=== PATIENT | female | born 1935 | race Caucasian/White ===

== ENCOUNTER 2024-11-17 01:11 | Inpatient (IN) | payer MEDICARE ==
[2024-11-17 02:55] VITALS: BMI 30.6
[2024-11-17] MEDS ORDERED: Ipratropium/Albuterol 3 ML NEB NEB PRN ×2 (03:49→09:34)
[2024-11-17] MEDS ORDERED: hydrALAZINE 20 MG/ML VIAL SLOW IVP PRN (04:09)
[2024-11-17] MEDS: Azithromycin 250 MG TAB PO SCH (04:57)
[2024-11-17 05:13] LABS: #Basophils Less than 0.03 10x3/uL (0.0-0.2); #Eosinophils Less than 0.03 10x3/uL (0.0-0.7); %Basophils 0.2 % (0.0-1.0); %Eosinophils 0.1 % (0.0-10.0); %Lymphocytes 4.7 % (21.0-51.0); %Monocytes 0.9 % (0.0-10.0); %Neutrophils 93.7 % (42.0-75.0); Hemoglobin 9.8 g/dL (12.0-16.0); Mean Corpuscular HGB CONC 32.7 g/dL (32.0-36.0); Mean Corpuscular Hemoglobin 29.3 pg (27.0-31.0); Mean Corpuscular Volume 89.6 fL (78.0-98.0); Mean Platelet Volume 9.3 fL (7.4-10.4); Platelet Count 400 10x3/uL (130-400); RBC Distribution Width 14.6 % (11.5-14.5); Red Blood Cell (RBC) Count 3.35 mill/uL (4.20-5.40)
[2024-11-17 05:42] LABS: ALT (SGPT) 11 U/L (8-55); AST (SGOT) 17 U/L (5-34); Albumin 3.3 g/dL (3.4-4.8); Alkaline Phosphatase 69 U/L (40-110); Anion Gap 15 mmol/L (10-20); BUN (Urea Nitrogen) 42 mg/dL (9.8-20.1); Bilirubin, Total 0.2 mg/dL (0.2-1.2); Calc. Creatinine Clearance 36 mL/min (70-130); Calcium 8.6 mg/dL (7.8-10.44); Carbon Dioxide 20 mmol/L (23-31); Chloride 108 mmol/L (98-107); Estimated GFR 41; Globulin 3.1 g/dL (2.4-3.5); Glucose 184 mg/dL (83-110); Potassium 4.2 mmol/L (3.5-5.1); Protein, Total 6.4 g/dL (5.8-8.1); Sodium 139 mmol/L (136-145)
[2024-11-17] MEDS ORDERED: Dextrose 5% in Water 1,000 ML IV PRN (06:07)
[2024-11-17] MEDS ORDERED: Dextrose 50% Abboject 50 ML SYRINGE SLOW IVP PRN (06:07)
[2024-11-17] MEDS ORDERED: Glucagon 1 MG/ML KIT IM PRN (06:07)
[2024-11-17 06:17] LABS: Influenza A by NAA Not Detected (NotDetected); Influenza B by NAA Not Detected (NotDetected); SARS-CoV-2 NAA Rapid Test Not Detected (NotDetected)
[2024-11-17] MEDS: Ipratropium/Albuterol 3 ML NEB NEB SCH ×2 (06:52→07:09)
[2024-11-17] MEDS: Enoxaparin 30 MG (0.3 mL) SYRINGE SC SCH (10:14)
[2024-11-17] MEDS: CeleCOXIB 100 MG CAP PO SCH ×2 (10:15→20:49)
[2024-11-17] MEDS: Amlodipine 10 MG TAB PO SCH (10:15)
[2024-11-17] MEDS: Methocarbamol 500 MG TAB PO SCH ×2 (10:15→20:50)
[2024-11-17] MEDS: Gabapentin 300 MG CAP PO SCH ×2 (10:15→20:49)
[2024-11-17] MEDS: ALPRAZolam 0.5 MG TAB PO SCH (20:50)
[2024-11-17] MEDS: methylPREDNISolone Sod Succ 40 MG VIAL IVP SCH (20:50)
[2024-11-17] MEDS ORDERED: ALPRAZolam 0.5 MG TAB PO SCH (21:00)
[2024-11-17] MEDS ORDERED: Amlodipine 10 MG TAB PO SCH (21:00)
[2024-11-17] MEDS ORDERED: cefTRIAXone\\ROCEPHIN 1 GM in Sodium Chloride 0.9% 100 ML IVPB SCH (21:00)
[2024-11-17] MEDS ORDERED: cefTRIAXone\\ROCEPHIN 2 GM in Sodium Chloride 0.9% 100 ML IVPB SCH (21:00)
[2024-11-17] MEDS ORDERED: clonazePAM 0.5 MG TAB PO SCH (21:00)
[2024-11-18 05:10] LABS: #Basophils Less than 0.03 10x3/uL (0.0-0.2); #Eosinophils Less than 0.03 10x3/uL (0.0-0.7); %Basophils 0.1 % (0.0-1.0); %Lymphocytes 5.2 % (21.0-51.0); %Monocytes 1.7 % (0.0-10.0); %Neutrophils 92.5 % (42.0-75.0); Hemoglobin 9.2 g/dL (12.0-16.0); Mean Corpuscular HGB CONC 32.9 g/dL (32.0-36.0); Mean Corpuscular Hemoglobin 29.2 pg (27.0-31.0); Mean Corpuscular Volume 88.9 fL (78.0-98.0); Platelet Count 390 10x3/uL (130-400); RBC Distribution Width 14.7 % (11.5-14.5); Red Blood Cell (RBC) Count 3.15 mill/uL (4.20-5.40)
[2024-11-18] MEDS: Levothyroxine Sodium 75 MCG TAB PO SCH (05:16)
[2024-11-18 05:26] LABS: Anion Gap 13 mmol/L (10-20); BUN (Urea Nitrogen) 56 mg/dL (9.8-20.1); Calc. Creatinine Clearance 39 mL/min (70-130); Calcium 8.4 mg/dL (7.8-10.44); Carbon Dioxide 20 mmol/L (23-31); Chloride 105 mmol/L (98-107); Estimated GFR 45; Glucose 174 mg/dL (83-110); Potassium 4.4 mmol/L (3.5-5.1); Sodium 134 mmol/L (136-145)
[2024-11-18] MEDS ORDERED: Valsartan 80 MG TAB PO SCH (09:00)
[2024-11-18] MEDS ORDERED: Hydrochlorothiazide 25 MG TAB PO SCH (09:00)
[2024-11-18] MEDS ORDERED: Non-Formulary Item 1 EACH (Valsartan/Hydrochlorothiazide [Valsartan-Hctz 160-25 Mg Tab] 1 PO SCH (09:00)
[2024-11-18] MEDS: Valsartan 80 MG TAB PO SCH (09:56)
[2024-11-18] MEDS: Magnesium Oxide 400 MG TAB PO SCH (09:56)
[2024-11-18] MEDS: Loratadine 10 MG TAB PO SCH (09:56)
[2024-11-18] MEDS: Azithromycin 250 MG TAB PO SCH (09:57)
[2024-11-18] MEDS: Hydrochlorothiazide 25 MG TAB PO SCH (10:02)
[2024-11-18] MEDS: Gabapentin 300 MG CAP PO SCH (10:02)
[2024-11-18] MEDS: Pantoprazole DR 40 MG TAB PO SCH (10:02)
[2024-11-18] MEDS: Amlodipine 10 MG TAB PO SCH (20:44)
[2024-11-19 05:01] LABS: #Basophils Less than 0.03 10x3/uL (0.0-0.2); #Eosinophils Less than 0.03 10x3/uL (0.0-0.7); %Basophils 0.1 % (0.0-1.0); %Lymphocytes 6.1 % (21.0-51.0); %Monocytes 1.7 % (0.0-10.0); %Neutrophils 91.5 % (42.0-75.0); Hemoglobin 9.4 g/dL (12.0-16.0); Mean Corpuscular HGB CONC 32.4 g/dL (32.0-36.0); Mean Corpuscular Hemoglobin 28.7 pg (27.0-31.0); Mean Corpuscular Volume 88.4 fL (78.0-98.0); Mean Platelet Volume 9.8 fL (7.4-10.4); Platelet Count 417 10x3/uL (130-400); RBC Distribution Width 14.8 % (11.5-14.5); Red Blood Cell (RBC) Count 3.28 mill/uL (4.20-5.40)
[2024-11-19 05:40] LABS: Anion Gap 13 mmol/L (10-20); BUN (Urea Nitrogen) 59 mg/dL (9.8-20.1); Calc. Creatinine Clearance 47 mL/min (70-130); Calcium 8.5 mg/dL (7.8-10.44); Carbon Dioxide 20 mmol/L (23-31); Chloride 107 mmol/L (98-107); Estimated GFR 57; Glucose 146 mg/dL (83-110); Potassium 5.5 mmol/L (3.5-5.1); Sodium 134 mmol/L (136-145)
[2024-11-19 09:06] LABS: Anion Gap 17 mmol/L (10-20); BUN (Urea Nitrogen) 60 mg/dL (9.8-20.1); Calc. Creatinine Clearance 37 mL/min (70-130); Calcium 8.7 mg/dL (7.8-10.44); Carbon Dioxide 18 mmol/L (23-31); Chloride 104 mmol/L (98-107); Estimated GFR 43; Glucose 225 mg/dL (83-110); Potassium 4.7 mmol/L (3.5-5.1); Sodium 134 mmol/L (136-145)
[2024-11-19 13:25] VITALS: BP 141/65; TEMP 97.4
== END 2024-11-19 14:45 | disposition home or self-care (01) | DRG 189 ==
LOC: INTOOBSV 01:11 → MSONC 01:11 → OBSVTOIN 11-18 15:56
PROVIDERS: ADMIT Family Medicine; ATTEND Family Medicine
DX: J96.01 Acute respiratory failure with hypoxia (principal); J18.9 Pneumonia, unspecified organism; J44.1 Chronic obstructive pulmonary disease with (acute) exacerbation; N17.9 Acute kidney failure, unspecified; J44.0 Chronic obstructive pulmonary disease with (acute) lower respiratory infection; I10 Essential (primary) hypertension; J84.10 Pulmonary fibrosis, unspecified; D64.9 Anemia, unspecified; R73.9 Hyperglycemia, unspecified; I49.9 Cardiac arrhythmia, unspecified; E03.9 Hypothyroidism, unspecified; G47.00 Insomnia, unspecified; M54.30 Sciatica, unspecified side; Z79.899 Other long term (current) drug therapy; Z79.890 Hormone replacement therapy; Z87.891 Personal history of nicotine dependence
CPT/HCPCS: 36415; 36416; 51798; 80048; 80053; 84145; 84439; 84443; 85025; 93005; 93010; 94640; 96372; 96374; G0378; J1650; J2919; J7620

== ENCOUNTER 2024-11-28 10:48 | Inpatient (IN) | payer MEDICARE ==
[2024-11-28 11:15] VITALS: BMI 32.5
[2024-11-28] MEDS: Furosemide 20 MG (2 mL) VIAL SLOW IVP SCH (13:09)
[2024-11-28] MEDS ORDERED: Ipratropium/Albuterol 3 ML NEB NEB PRN (14:04)
[2024-11-28] MEDS: Ipratropium/Albuterol 3 ML NEB NEB SCH (14:11)
[2024-11-28] MEDS ORDERED: Mometasone 100 MCG HFA INHALER (RT USE) INH SCH (18:30)
[2024-11-28] MEDS ORDERED: BREZTRI INH SCH (18:30)
[2024-11-28] MEDS: ALPRAZolam 0.5 MG TAB PO SCH (19:40)
[2024-11-28] MEDS: Amlodipine 10 MG TAB PO SCH (19:40)
[2024-11-28] MEDS: CeleCOXIB 100 MG CAP PO SCH (19:40)
[2024-11-28] MEDS: Gabapentin 300 MG CAP PO SCH (19:41)
[2024-11-28] MEDS: guaiFENesin ER 600 MG TAB PO SCH (20:55)
[2024-11-29] MEDS: Levothyroxine Sodium 75 MCG TAB PO SCH (05:30)
[2024-11-29 06:11] LABS: #Basophils 0.03 10x3/uL (0.0-0.2); #Eosinophils Less than 0.03 10x3/uL (0.0-0.7); %Basophils 0.2 % (0.0-1.0); %Lymphocytes 9.7 % (21.0-51.0); %Monocytes 6.2 % (0.0-10.0); %Neutrophils 82.7 % (42.0-75.0); Hematocrit 30.6 % (36.0-47.0); Mean Corpuscular HGB CONC 32.7 g/dL (32.0-36.0); Mean Corpuscular Hemoglobin 28.5 pg (27.0-31.0); Mean Corpuscular Volume 87.2 fL (78.0-98.0); Mean Platelet Volume 9.3 fL (7.4-10.4); Platelet Count 303 10x3/uL (130-400); RBC Distribution Width 14.3 % (11.5-14.5); Red Blood Cell (RBC) Count 3.51 mill/uL (4.20-5.40)
[2024-11-29 06:32] LABS: ALT (SGPT) 13 U/L (8-55); AST (SGOT) 16 U/L (5-34); Albumin 3.2 g/dL (3.4-4.8); Alkaline Phosphatase 72 U/L (40-110); Anion Gap 12 mmol/L (10-20); BUN (Urea Nitrogen) 29 mg/dL (9.8-20.1); Bilirubin, Total 0.5 mg/dL (0.2-1.2); Calc. Creatinine Clearance 53 mL/min (70-130); Calcium 8.9 mg/dL (7.8-10.44); Carbon Dioxide 28 mmol/L (23-31); Chloride 99 mmol/L (98-107); Estimated GFR 63; Globulin 3.5 g/dL (2.4-3.5); Glucose 120 mg/dL (83-110); Potassium 3.8 mmol/L (3.5-5.1); Protein, Total 6.7 g/dL (5.8-8.1); Sodium 135 mmol/L (136-145)
[2024-11-29] MEDS ORDERED: Ibuprofen 600 MG TAB PO PRN (06:55)
[2024-11-29] MEDS: Gabapentin 300 MG CAP PO SCH (08:10)
[2024-11-29] MEDS: Valsartan 80 MG TAB PO SCH (08:10)
[2024-11-29] MEDS: Hydrochlorothiazide 25 MG TAB PO SCH (08:10)
[2024-11-29] MEDS: Pantoprazole DR 40 MG TAB PO SCH (08:10)
[2024-11-29] MEDS: Enoxaparin 40 MG (0.4 mL) SYRINGE SC SCH (08:11)
[2024-11-29] MEDS: Loratadine 10 MG TAB PO SCH (08:11)
[2024-11-29] MEDS: Acetaminophen 325 MG TAB PO PRN (08:11)
[2024-11-29] MEDS: Magnesium Oxide 400 MG TAB PO SCH (08:11)
[2024-11-29] MEDS: BUDESONIDE INH SCH (08:12)
[2024-11-29] MEDS: GLYCOPYR INH SCH (08:12)
[2024-11-29] MEDS: FORMOTEROL INH SCH (08:12)
[2024-11-29] MEDS: Ipratropium/Albuterol 3 ML NEB NEB PRN (13:09)
[2024-11-30 04:31] LABS: #Basophils 0.09 10x3/uL (0.0-0.2); %Basophils 0.7 % (0.0-1.0); %Eosinophils 2.3 % (0.0-10.0); %Monocytes 7.1 % (0.0-10.0); %Neutrophils 71.4 % (42.0-75.0); Hemoglobin 9.4 g/dL (12.0-16.0); Mean Corpuscular HGB CONC 31.3 g/dL (32.0-36.0); Mean Corpuscular Hemoglobin 28.4 pg (27.0-31.0); Mean Corpuscular Volume 90.6 fL (78.0-98.0); Mean Platelet Volume 9.6 fL (7.4-10.4); Platelet Count 290 10x3/uL (130-400); RBC Distribution Width 14.4 % (11.5-14.5); Red Blood Cell (RBC) Count 3.31 mill/uL (4.20-5.40)
[2024-11-30 04:51] LABS: ALT (SGPT) 16 U/L (8-55); AST (SGOT) 25 U/L (5-34); Albumin 3.2 g/dL (3.4-4.8); Alkaline Phosphatase 61 U/L (40-110); Anion Gap 11 mmol/L (10-20); BUN (Urea Nitrogen) 37 mg/dL (9.8-20.1); Bilirubin, Total 0.4 mg/dL (0.2-1.2); Calc. Creatinine Clearance 53 mL/min (70-130); Calcium 8.6 mg/dL (7.8-10.44); Carbon Dioxide 27 mmol/L (23-31); Chloride 99 mmol/L (98-107); Estimated GFR 63; Glucose 93 mg/dL (83-110); Protein, Total 6.2 g/dL (5.8-8.1); Sodium 133 mmol/L (136-145)
[2024-11-30] MEDS ORDERED: Iopamidol-370 76% 500 ML MDV (1 ML CHARGE) ONE (09:10)
[2024-11-30] MEDS: Gabapentin 300 MG CAP PO SCH (18:02)
[2024-12-01 05:42] LABS: #Basophils 0.11 10x3/uL (0.0-0.2); %Eosinophils 6.2 % (0.0-10.0); %Lymphocytes 19.9 % (21.0-51.0); %Monocytes 8.6 % (0.0-10.0); %Neutrophils 63.8 % (42.0-75.0); Hematocrit 27.8 % (36.0-47.0); Hemoglobin 9.1 g/dL (12.0-16.0); Mean Corpuscular HGB CONC 32.7 g/dL (32.0-36.0); Mean Corpuscular Hemoglobin 28.9 pg (27.0-31.0); Mean Corpuscular Volume 88.3 fL (78.0-98.0); Platelet Count 301 10x3/uL (130-400); RBC Distribution Width 14.1 % (11.5-14.5); Red Blood Cell (RBC) Count 3.15 mill/uL (4.20-5.40)
[2024-12-01 05:53] LABS: ALT (SGPT) 14 U/L (8-55); AST (SGOT) 19 U/L (5-34); Alkaline Phosphatase 60 U/L (40-110); Anion Gap 10 mmol/L (10-20); BUN (Urea Nitrogen) 32 mg/dL (9.8-20.1); Bilirubin, Total 0.3 mg/dL (0.2-1.2); Calc. Creatinine Clearance 45 mL/min (70-130); Calcium 8.6 mg/dL (7.8-10.44); Carbon Dioxide 27 mmol/L (23-31); Chloride 101 mmol/L (98-107); Estimated GFR 57; Globulin 2.7 g/dL (2.4-3.5); Glucose 90 mg/dL (83-110); Potassium 4.2 mmol/L (3.5-5.1); Protein, Total 5.7 g/dL (5.8-8.1); Sodium 134 mmol/L (136-145)
[2024-12-01] MEDS: predniSONE 20 MG TAB PO SCH (09:20)
[2024-12-02 07:06] LABS: #Basophils Less than 0.03 10x3/uL (0.0-0.2); %Basophils 0.2 % (0.0-1.0); %Eosinophils 0.4 % (0.0-10.0); %Lymphocytes 14.1 % (21.0-51.0); %Neutrophils 78.3 % (42.0-75.0); Hematocrit 29.6 % (36.0-47.0); Hemoglobin 9.8 g/dL (12.0-16.0); Mean Corpuscular HGB CONC 33.1 g/dL (32.0-36.0); Mean Corpuscular Hemoglobin 28.9 pg (27.0-31.0); Mean Corpuscular Volume 87.3 fL (78.0-98.0); Mean Platelet Volume 9.7 fL (7.4-10.4); Platelet Count 316 10x3/uL (130-400); RBC Distribution Width 13.7 % (11.5-14.5); Red Blood Cell (RBC) Count 3.39 mill/uL (4.20-5.40)
[2024-12-02 07:18] LABS: ALT (SGPT) 13 U/L (8-55); AST (SGOT) 14 U/L (5-34); Albumin 3.1 g/dL (3.4-4.8); Alkaline Phosphatase 63 U/L (40-110); Anion Gap 14 mmol/L (10-20); BUN (Urea Nitrogen) 32 mg/dL (9.8-20.1); Bilirubin, Total 0.3 mg/dL (0.2-1.2); Calc. Creatinine Clearance 51 mL/min (70-130); Calcium 8.6 mg/dL (7.8-10.44); Carbon Dioxide 24 mmol/L (23-31); Chloride 103 mmol/L (98-107); Estimated GFR 66; Globulin 2.9 g/dL (2.4-3.5); Glucose 110 mg/dL (83-110); Potassium 3.9 mmol/L (3.5-5.1); Sodium 137 mmol/L (136-145)
[2024-12-02] MEDS: FLU (Fluad Triv) TS24-25 (65UP)/MF59C/PF 45 MCG/0.5 ML Syringe IM ONE (16:10)
[2024-12-02 17:31] VITALS: BP 171/75; TEMP 98
== END 2024-12-02 17:20 | disposition home or self-care (01) | DRG 189 ==
LOC: T4-B 11:01
PROVIDERS: ADMIT Student in an Organized Health Care Education/Training Program; ATTEND Student in an Organized Health Care Education/Training Program
DX: J96.21 Acute and chronic respiratory failure with hypoxia (principal); J44.1 Chronic obstructive pulmonary disease with (acute) exacerbation; J84.10 Pulmonary fibrosis, unspecified; F41.9 Anxiety disorder, unspecified; I10 Essential (primary) hypertension; E03.9 Hypothyroidism, unspecified; Z66 Do not resuscitate; R01.1 Cardiac murmur, unspecified; M54.30 Sciatica, unspecified side; G47.00 Insomnia, unspecified; Z79.51 Long term (current) use of inhaled steroids; Z87.891 Personal history of nicotine dependence; Z79.899 Other long term (current) drug therapy; Z90.710 Acquired absence of both cervix and uterus; Z79.890 Hormone replacement therapy; Z79.1 Long term (current) use of non-steroidal anti-inflammatories (NSAID)
CPT/HCPCS: 36415; 71275; 74230; 80053; 84145; 85025; 87081; 93306; 94640; J1650; J1940; J7512; J7620; Q9967